=== PATIENT | female | born 1965 | race Asian ===

== ENCOUNTER 2018-02-01 19:10 | Emergency (ER) | payer MEDICAID, OTHER ==
[~2018-02-01] VITALS: Ht 154.9 cm; Wt 65.9 kg
[~2018-02-01 19:10] MED LIST: AMOX-580 PO; IBUP-1985 PO; ONDA4TAB12 PO; TRAM50TA2 PO
[2018-02-01 19:18] VITALS: BP 142/89
[2018-02-01] MEDS ORDERED: SILV20CR13 TOP (21:25)
== END 2018-02-01 21:42 | disposition home or self-care (01) ==
LOC: ER 19:11
DX: T24.132A Burn of first degree of left lower leg, initial encounter (principal); T24.131A Burn of first degree of right lower leg, initial encounter; F17.200 Nicotine dependence, unspecified, uncomplicated; X10.0XXA Contact with hot drinks, initial encounter; Y93.89 Activity, other specified; Y92.89 Other specified places as the place of occurrence of the external cause; Y99.8 Other external cause status
CPT/HCPCS: 99282; 99283

== ENCOUNTER 2023-10-24 14:23 | Emergency (ER) | payer OTHER ==
[~2023-10-24] VITALS: Ht 154.9 cm; Wt 56.5 kg
[~2023-10-24 14:23] MED LIST changes: -AMOX-580 PO; +SILV20CR13 TOP; -TRAM50TA2 PO
[2023-10-24 14:37] VITALS: BP 124/77; PULSE 96; RESP 16; TEMP 98.1; O2SAT 96
[2023-10-24 15:17] LABS: BASOPHILS # (AUTO) 0.1 X10'3 (0-0.2); HEMOGLOBIN 11.8 g/dl (12.0-16.0); MEAN PLATELET VOLUME 6.4 FL (7.4-10.4); MONOCYTES # (AUTO) 0.6 X10'3 (0-0.9)
[2023-10-24 15:19] LABS: BASOPHILS % (AUTO) 0.6 % (0-1); EOSINOPHILS % (AUTO) 0.3 % (0-6); HEMATOCRIT 35.3 % (35.0-45.0); LYMPHOCYTES % (AUTO) 19.8 % (21-51); MEAN CORPUSCULAR HGB CONC 33.3 g/dL (33.0-36.5); MEAN CORPUSCULAR VOLUME 90.1 FL (78-98); MONOCYTES % (AUTO) 6.2 % (2-12); NEUTROPHILS # (AUTO) 7.3 X10'3 (1.8-7.7); NEUTROPHILS % (AUTO) 73.1 % (42-75); PLATELET COUNT 694 X10'3 (140-440); RED BLOOD COUNT 3.92 X10'6 (4.20-5.60); RED CELL DISTRIBUTION WIDTH 13.3 % (11.5-14.5); WHITE BLOOD COUNT 10.1 X10'3 (4.5-11.0)
[2023-10-24 15:35] LABS: ALANINE AMINOTRANSFERASE 17 U/L (12-78); ALBUMIN 3.4 G/DL (3.4-5.0); ALBUMIN/GLOBULIN RATIO 0.8 (1.1-1.5); ALKALINE PHOSPHATASE 91 IU/L (46-116); ANION GAP 7 (8-16); ASPARTATE AMINO TRANSFERASE 17 U/L (10-37); BILIRUBIN,TOTAL 0.3 MG/DL (0.1-1.0); BLOOD UREA NITROGEN 15 MG/DL (7-18); BUN/CREATININE RATIO 22.4 (10.0-20.0); CALCIUM 9.4 MG/DL (8.5-10.1); CHLORIDE 103 MMOL/L (99-107); CREATININE 0.67 MG/DL (0.40-0.90); GLUCOSE 81 MG/DL (70-104); POTASSIUM 3.6 MMOL/L (3.5-5.1); SODIUM 136 MMOL/L (135-145); TOTAL CARBON DIOXIDE 26.2 MMOL/L (24-32); TOTAL PROTEIN 7.6 G/DL (6.4-8.2); eCRCL 68 ML/MIN; eGFR 90 ML/MIN
[2023-10-24 15:42] LABS: PRO BRAIN NATRIURETIC PEPTIDE 199 PG/ML (0-125)
== END 2023-10-24 17:15 | disposition left against medical advice (07) ==
LOC: ER 14:24
DX: R07.9 Chest pain, unspecified (principal); R06.02 Shortness of breath
CPT/HCPCS: 36415; 71100; 80053; 83880; 84484; 85025; 93005; 99285

== ENCOUNTER 2025-08-05 14:37 | Outpatient (CLI) | payer MEDICAID ==
[~2025-08-05 14:37] MED LIST changes: -IBUP-1985 PO; +IBUP600T52 PO; +ONDA-243 PO; -ONDA4TAB12 PO
--- NOTE | 2025-08-05 18:38 | RADIOLOGY REPORT ---
EXAM: CT CT CHEST LOW DOSE INDICATION: NICOTINE DEPENDENCE, CIGARETTES, UNCOMPLICATED TECHNIQUE: Low-dose noncontrast CT of the lungs have been obtained. All CT scans at this facility use dose modulation, iterative reconstruction, and/or weight based dosing when appropriate to reduce radiation dose to as low as reasonably achievable. COMPARISON: None FINDINGS: LOWER NECK: Unremarkable LYMPH NODES/MEDIASTINUM: No abnormal lymph nodes by CT size criteria CARDIOVASCULAR: Normal cardiac size. No pericardial effusion. No aneurysmal dilatation of the great vessels. No significant coronary artery calcifications. UPPER ABDOMEN: Limited evaluation secondary to photon starvation. Unremarkable. MUSCULOSKELETAL: Multilevel degenerative change of the visualized spine. No acute fracture or aggressive focal osseous lesion. CHEST WALL: Unremarkable. LUNG/PLEURAL SPACE: No consolidation, suspicious focal airspace opacity, or suspicious nodules. No pleural effusion or pneumothorax. Calcific granulomas. Scattered 1-2 mm peripherally distributed micro nodules. No suspicious imaging features. IMPRESSION: 1. No CT evidence of an acute intrathoracic process. LUNG-RADS: 2- Benign Appearance or Behavior RECOMMENDATION: Annual low dose lung screening CT is recommended for 15 years after smoking cessation or until age 77. CITATION: Lung cancer screening categorization and recommendations per [employer] Lung-RADS Version 1.0 (http://www.acr.org/Quality- Safety/Resources/LungRADS).
== END 2025-08-05 23:59 | disposition home or self-care (01) ==
LOC: RAD 14:37
DX: Z12.2 Encounter for screening for malignant neoplasm of respiratory organs (principal); J84.10 Pulmonary fibrosis, unspecified; F17.210 Nicotine dependence, cigarettes, uncomplicated
CPT/HCPCS: 71271